=== PATIENT | female | born 1945 | race Caucasian/White ===

== ENCOUNTER 2017-08-20 09:00 | Outpatient (CLI) | payer MEDICARE, BC ==
--- NOTE | 2017-08-20 09:56 | MMO ---
BILATERAL DIGITAL SCREENING MAMMOGRAMS: History: 72-year-old female present for digital screening mammography. Comparison: 07-18-16, 07-13-15, 01-27-13, 01-21-12 This study is interpreted with the assistance of computer aided detection. FINDINGS: The breasts are heterogeneously dense which can obscure small masses. Stable typically benign calcifi cations. Stable bilateral parenchymal density asymmetries. Multiple skin molds. IMPRESSION: BIRADS category 2 - benign findings. Continued annual screening. POS: [facility]
== END 2017-08-20 09:01 | disposition home or self-care (01) ==
LOC: SCSMAMMO 09:00
PROVIDERS: ATTEND Nurse Practitioner
DX: Z12.31 Encounter for screening mammogram for malignant neoplasm of breast (principal)
CPT/HCPCS: 77067; G0202

== ENCOUNTER 2023-03-01 16:45 | Inpatient (IN) | payer MEDICARE, BC ==
[2023-03-01 20:52] VITALS: BMI 25.0
[2023-03-01] MEDS ORDERED: Piperacillin/Tazobactam 3.375 GM in Sodium Chloride 0.9% 100 ML IVPB SCH (21:00)
[2023-03-01] MEDS ORDERED: Morphine 4 MG/ML VIAL SLOW IVP SCH (21:15)
[2023-03-01] MEDS: Metoclopramide HCl 10 MG/2 ML VIAL IVP PRN (21:49)
[2023-03-01] MEDS: Morphine 4 MG/ML VIAL SLOW IVP PRN (22:32)
[2023-03-01] MEDS ORDERED: Piperacillin/Tazobactam 4.5 GM in Sodium Chloride 0.9% 100 ML IVPB SCH (23:59)
[2023-03-02] MEDS: Piperacillin/Tazobactam 3.375 GM in Sodium Chloride 0.9% 100 ML IVPB SCH ×3 (01:18→16:36)
[2023-03-02] MEDS: Morphine 4 MG/ML VIAL SLOW IVP PRN ×4 (02:30→17:10)
[2023-03-02] MEDS: Ondansetron PF 4 MG/2 ML Vial IVP PRN (02:33)
[2023-03-02 06:00] LABS: #Monocytes 0.3 thou/uL (0.11-0.59); #Neutrophils 6.9 thou/uL (1.40-6.50); %Basophils 0.4 % (0.0-1.0); %Lymphocytes 8.7 % (21.0-51.0); %Monocytes 3.8 % (0.0-10.0); %Neutrophils 86.8 % (42.0-75.0); Hemoglobin 13.7 g/dL (12.0-16.0); Mean Corpuscular HGB CONC 33.2 g/dL (32.0-36.0); Mean Corpuscular Hemoglobin 29.4 pg (27.0-31.0); Mean Corpuscular Volume 88.6 fl (78.0-98.0); Platelet Count 231 10x3/uL (130-400); Red Blood Cell (RBC) Count 4.66 mill/uL (4.20-5.40); White Blood Cell (WBC) Count 7.9 10x3/uL (4.8-10.8)
[2023-03-02 06:04] LABS: Manual Diff?? YES
[2023-03-02] MEDS: Metoclopramide HCl 10 MG/2 ML VIAL IVP PRN ×2 (06:17→16:35)
[2023-03-02 06:26] LABS: ALT (SGPT) 8 U/L (8-55); AST (SGOT) 11 U/L (5-34); Albumin 3.1 g/dL (3.4-4.8); Alkaline Phosphatase 42 U/L (40-110); Anion Gap 12 mmol/L (10-20); BUN (Urea Nitrogen) 17 mg/dL (9.8-20.1); Bilirubin, Total 1.3 mg/dL (0.2-1.2); Calc. Creatinine Clearance 57 mL/min (70-130); Calcium 8.6 mg/dL (7.8-10.44); Carbon Dioxide 23 mmol/L (23-31); Chloride 107 mmol/L (98-107); Estimated GFR 65; Globulin 2.4 g/dL (2.4-3.5); Glucose 149 mg/dL (83-110); Potassium 4.6 mmol/L (3.5-5.1); Protein, Total 5.5 g/dL (5.8-8.1); Sodium 137 mmol/L (136-145)
[2023-03-02 06:47] LABS: Band 38 % (5-11); Large Platelets 0.9 % (0-5); Lymphocytes 12 % (21-51); Metamyelocyte 1 % (0-0); Monocytes 4 % (0-10); Neutrophil 45 % (42-75); Platelet Adequacy Comment Platelets Normal; Total Cell Count 108
[2023-03-02] MEDS ORDERED: Ketorolac Tromethamine 30 MG/ML VIAL ONE (08:14)
[2023-03-02] MEDS ORDERED: Ketorolac Tromethamine 30 MG/ML VIAL IVP SCH (08:15)
[2023-03-02] MEDS: Lactated Ringer's 1,000 ML IV SCH ×2 (08:21→22:42)
[2023-03-02] MEDS: Dicyclomine 10 MG CAP PO SCH ×3 (13:21→20:52)
[2023-03-02] MEDS: Ketorolac Tromethamine 30 MG/ML VIAL IVP PRN ×2 (14:15→20:51)
[2023-03-02] MEDS ORDERED: QUEtiapine 100 MG TAB PO SCH (21:00)
[2023-03-02 22:25] LABS: #Monocytes 0.2 thou/uL (0.11-0.59); #Neutrophils 3.7 thou/uL (1.40-6.50); %Basophils 0.2 % (0.0-1.0); %Lymphocytes 7.7 % (21.0-51.0); %Monocytes 3.9 % (0.0-10.0); Hemoglobin 12.6 g/dL (12.0-16.0); Mean Corpuscular HGB CONC 33.2 g/dL (32.0-36.0); Mean Corpuscular Hemoglobin 30.5 pg (27.0-31.0); Mean Platelet Volume 10.1 fL (7.4-10.4); Platelet Count 188 10x3/uL (130-400); RBC Distribution Width 13.2 % (11.5-14.5); Red Blood Cell (RBC) Count 4.13 mill/uL (4.20-5.40); White Blood Cell (WBC) Count 4.2 10x3/uL (4.8-10.8)
[2023-03-02 22:30] LABS: Delete Auto Diff?? NO; Mean Corpuscular Volume 91.8 fl (78.0-98.0)
[2023-03-02 22:46] LABS: Anion Gap 12 mmol/L (10-20); BUN (Urea Nitrogen) 26 mg/dL (9.8-20.1); Calc. Creatinine Clearance 49 mL/min (70-130); Calcium 8.8 mg/dL (7.8-10.44); Carbon Dioxide 23 mmol/L (23-31); Chloride 108 mmol/L (98-107); Estimated GFR 54; Glucose 128 mg/dL (83-110); Potassium 4.2 mmol/L (3.5-5.1); Sodium 139 mmol/L (136-145)
[2023-03-02 22:51] LABS: Troponin I Less than 0.010 ng/mL (< 0.028)
[2023-03-03] MEDS: Piperacillin/Tazobactam 3.375 GM in Sodium Chloride 0.9% 100 ML IVPB SCH ×4 (01:58→23:03)
[2023-03-03] MEDS: Ketorolac Tromethamine 30 MG/ML VIAL IVP PRN (02:28)
[2023-03-03] MEDS ORDERED: Furosemide 40 MG/4 ML VIAL SLOW IVP SCH (03:00)
[2023-03-03] MEDS ORDERED: Ipratropium/Albuterol 3 ML NEB NEB SCH (03:00)
[2023-03-03] MEDS ORDERED: Morphine 2 MG/ML VIAL SLOW IVP PRN ×2 (03:23→12:09)
[2023-03-03] MEDS: Lactated Ringer's 1,000 ML IV SCH (06:21)
[2023-03-03] MEDS ORDERED: Lactated Ringer's 1,000 ML IV SCH (06:31)
[2023-03-03 07:53] LABS: Hemoglobin 12.3 g/dL (12.0-16.0); Mean Corpuscular HGB CONC 32.7 g/dL (32.0-36.0); Mean Corpuscular Hemoglobin 30.1 pg (27.0-31.0); Mean Corpuscular Volume 92.2 fl (78.0-98.0); Mean Platelet Volume 10.2 fL (7.4-10.4); Platelet Count 175 10x3/uL (130-400); RBC Distribution Width 13.2 % (11.5-14.5); Red Blood Cell (RBC) Count 4.08 mill/uL (4.20-5.40); White Blood Cell (WBC) Count 6.2 10x3/uL (4.8-10.8)
[2023-03-03] MEDS ORDERED: Ketorolac Tromethamine 30 MG/ML VIAL IVP PRN (07:59)
[2023-03-03] MEDS: Dicyclomine 10 MG CAP PO SCH ×3 (08:12→16:15)
[2023-03-03 08:14] LABS: Anion Gap 15 mmol/L (10-20); BUN (Urea Nitrogen) 29 mg/dL (9.8-20.1); Calc. Creatinine Clearance 40 mL/min (70-130); Calcium 8.9 mg/dL (7.8-10.44); Carbon Dioxide 23 mmol/L (23-31); Chloride 105 mmol/L (98-107); Estimated GFR 43; Glucose 121 mg/dL (83-110); Magnesium 2.5 mg/dL (1.6-2.6); Potassium 4.8 mmol/L (3.5-5.1); Sodium 138 mmol/L (136-145)
[2023-03-03 08:15] LABS: Delete Auto Diff?? YES; Manual Diff?? YES
[2023-03-03] MEDS ORDERED: Polyethylene Glycol 3350 17 GM Packet PO SCH (09:00)
[2023-03-03] MEDS ORDERED: Piperacillin/Tazobactam 3.375 GM in Sodium Chloride 0.9% 100 ML IVPB SCH (09:15)
[2023-03-03] MEDS ORDERED: Sodium Chloride 0.9% 1,000 ML IV SCH (09:15)
[2023-03-03 12:19] LABS: Band 44 % (5-11); Burr Cells SLIGHT = 2-5 cells HPF (0-1); CellaVision Operator ID LAB.NR; Large Platelets 1.9 % (0-5); Lymphocytes 10 % (21-51); Macrocytosis SLIGHT = 6-15 cells HPF (0-5); Monocytes 5 % (0-10); Neutrophil 41 % (42-75); Platelet Adequacy Comment Platelets Normal; Polychromasia SLIGHT = 2-3 cells HPF (0-2); Smudge Cells 5.8 %; Total Cell Count 104
[2023-03-03] MEDS: Ondansetron PF 4 MG/2 ML Vial IVP PRN (13:47)
[2023-03-03] MEDS ORDERED: Promethazine HCl 25 MG in Sodium Chloride 0.9% 50 ML IVPB PRN (14:03)
[2023-03-03 17:39] LABS: #Monocytes 0.1 thou/uL (0.11-0.59); #Neutrophils 4.7 thou/uL (1.40-6.50); %Basophils 0.4 % (0.0-1.0); %Lymphocytes 5.1 % (21.0-51.0); %Monocytes 2.2 % (0.0-10.0); %Neutrophils 92.1 % (42.0-75.0); Hemoglobin 13.6 g/dL (12.0-16.0); Mean Corpuscular HGB CONC 32.6 g/dL (32.0-36.0); Mean Corpuscular Hemoglobin 30.3 pg (27.0-31.0); Mean Corpuscular Volume 92.9 fl (78.0-98.0); Mean Platelet Volume 10.2 fL (7.4-10.4); Platelet Count 236 10x3/uL (130-400); RBC Distribution Width 13.2 % (11.5-14.5); Red Blood Cell (RBC) Count 4.49 mill/uL (4.20-5.40); White Blood Cell (WBC) Count 5.1 10x3/uL (4.8-10.8)
[2023-03-03 17:56] LABS: INR-International Normal Ratio 1.3; Prothrombin Time 16.8 sec (12.0-14.7)
[2023-03-03 18:00] LABS: ALT (SGPT) 18 U/L (8-55); AST (SGOT) 24 U/L (5-34); Albumin 3.2 g/dL (3.4-4.8); Alkaline Phosphatase 61 U/L (40-110); Anion Gap 16 mmol/L (10-20); BUN (Urea Nitrogen) 31 mg/dL (9.8-20.1); Bilirubin, Total 0.5 mg/dL (0.2-1.2); Calc. Creatinine Clearance 47 mL/min (70-130); Calcium 9.4 mg/dL (7.8-10.44); Carbon Dioxide 20 mmol/L (23-31); Chloride 104 mmol/L (98-107); Estimated GFR 52; Glucose 99 mg/dL (83-110); Potassium 4.2 mmol/L (3.5-5.1); Protein, Total 6.2 g/dL (5.8-8.1); Sodium 136 mmol/L (136-145)
[2023-03-03] MEDS ORDERED: Phenylephrine 10 MG/ML VIAL ONE (18:35)
[2023-03-03] MEDS ORDERED: fentaNYL 50 mcg/mL 1 mL Vial ONE ×2 (18:35→20:15)
[2023-03-03] MEDS ORDERED: Albumin 5% 500 ML ONE (18:44)
[2023-03-03] MEDS ORDERED: Calcium Chloride 1 GM/10 ML Abboject SYRINGE ONE (18:44)
[2023-03-03] MEDS ORDERED: Rocuronium Bromide 10 MG/ML (10ML VIAL) ONE (19:14)
[2023-03-03] MEDS ORDERED: Lidocaine 1% PF 5 ML VIAL ONE (19:14)
[2023-03-03] MEDS ORDERED: PROPOFOL 200 MG/20 ML VIAL ONE (19:14)
[2023-03-03] MEDS ORDERED: Fentanyl 250 MCG/5 ML VIAL ONE (20:17)
[2023-03-03] MEDS ORDERED: Sodium Chloride 0.9% 100 ML ONE (21:13)
[2023-03-03] MEDS ORDERED: Piperacillin/Tazobactam 3.375 GM VIAL ONE (21:13)
[2023-03-03 23:01] LABS: Calcium, Ionized (arterial) 1.04 mmol/L (1.12-1.30); Carboxyhemoglobin (COHb) 0.4 gm% (0.0-3.0); Hematocrit-ABG 36 % (36.0-47.0); Hemoglobin (Hb) 12.2 g/dL (12.0-16.0); O2 Tension (PaO2), arterial 241.6 mmHg (> 70.0); Potassium - ABG Lab 3.91 mmol/L (3.70-5.30); pH, Arterial 7.407 (7.35-7.45)
[2023-03-03 23:02] LABS: CO2 Tension 24.3 mmHg (35.0-45.0); Puncture Site LBA
[2023-03-03] MEDS: Sodium Chloride 0.9% 1,000 ML IV SCH (23:02)
[2023-03-03 23:03] LABS: ALV-art Gradient 441.025 mmHg (0-20)
[2023-03-03] MEDS ORDERED: Fentanyl CADD 100 ML IV PRN (23:03)
[2023-03-03] MEDS ORDERED: Calcium Chloride 1 GM/10 ML Abboject SYRINGE IVP SCH (23:15)
[2023-03-03 23:29] LABS: #Monocytes 0.3 thou/uL (0.11-0.59); #Neutrophils 5.1 thou/uL (1.40-6.50); %Basophils 0.5 % (0.0-1.0); %Lymphocytes 7.2 % (21.0-51.0); %Monocytes 4.3 % (0.0-10.0); %Neutrophils 87.5 % (42.0-75.0); Hemoglobin 12.8 g/dL (12.0-16.0); Mean Corpuscular HGB CONC 32.7 g/dL (32.0-36.0); Mean Corpuscular Hemoglobin 30.2 pg (27.0-31.0); Mean Corpuscular Volume 92.5 fl (78.0-98.0); Platelet Count 195 10x3/uL (130-400); RBC Distribution Width 13.2 % (11.5-14.5); Red Blood Cell (RBC) Count 4.24 mill/uL (4.20-5.40); White Blood Cell (WBC) Count 5.8 10x3/uL (4.8-10.8)
[2023-03-03 23:33] LABS: Manual Diff?? YES
[2023-03-03 23:40] LABS: INR-International Normal Ratio 1.3
[2023-03-03 23:41] LABS: PTT 31.6 sec (22.9-36.1)
[2023-03-03 23:52] LABS: Anion Gap 19 mmol/L (10-20); BUN (Urea Nitrogen) 32 mg/dL (9.8-20.1); Calc. Creatinine Clearance 51 mL/min (70-130); Calcium 8.5 mg/dL (7.8-10.44); Carbon Dioxide 15 mmol/L (23-31); Chloride 109 mmol/L (98-107); Estimated GFR 58; Glucose 103 mg/dL (83-110); Magnesium 2.5 mg/dL (1.6-2.6); Phosphorus 2.6 mg/dL (2.3-4.7); Potassium 4.4 mmol/L (3.5-5.1); Sodium 139 mmol/L (136-145)
[2023-03-04 00:12] LABS: Band 36 % (5-11); Burr Cells MODERATE= 6-15 cells HPF (0-1); Lymphocytes 7 % (21-51); Monocytes 2 % (0-10); Neutrophil 53 % (42-75); Platelet Adequacy Comment Platelets Normal; Poikilocytosis SLIGHT = 6-15 cells HPF (0-5); Polychromasia SLIGHT = 2-3 cells HPF (0-2); Reactive Lymphocytes 2 % (0-10); Total Cell Count 102
[2023-03-04] MEDS: Ipratropium/Albuterol 3 ML NEB NEB SCH ×5 (02:30→23:25)
[2023-03-04] MEDS ORDERED: Sodium Chloride 0.9% 1,000 ML IV SCH ×2 (07:30→07:45)
[2023-03-04 07:31] LABS: Actual Bicarbonate (HCO3a) 16.4 mEq/L (22-28); Base Excess (BEa) -6.6 mEq/L (-2.0 to +3.0); CO2 Tension 25.7 mmHg (35.0-45.0); Calcium, Ionized (arterial) 1.23 mmol/L (1.12-1.30); Carboxyhemoglobin (COHb) 0.3 gm% (0.0-3.0); Hematocrit-ABG 34 % (36.0-47.0); Hemoglobin (Hb) 11.7 g/dL (12.0-16.0); O2 Tension (PaO2), arterial 110.9 mmHg (> 70.0); Potassium - ABG Lab 3.99 mmol/L (3.70-5.30); pH, Arterial 7.422 (7.35-7.45)
[2023-03-04 07:40] LABS: Puncture Site RRA
[2023-03-04 07:41] LABS: ALV-art Gradient 142.175 mmHg (0-20)
[2023-03-04] MEDS ORDERED: Sodium Chloride 0.9% 500 ML IV SCH (07:45)
[2023-03-04] MEDS ORDERED: Lactated Ringer's 1,000 ML IV SCH ×2 (08:00→09:45)
[2023-03-04 08:24] LABS: Hemoglobin 10.7 g/dL (12.0-16.0); Mean Corpuscular HGB CONC 33.2 g/dL (32.0-36.0); Mean Corpuscular Hemoglobin 30.1 pg (27.0-31.0); Mean Corpuscular Volume 90.4 fl (78.0-98.0); Mean Platelet Volume 10.5 fL (7.4-10.4); Platelet Count 182 10x3/uL (130-400); RBC Distribution Width 13.4 % (11.5-14.5); Red Blood Cell (RBC) Count 3.56 mill/uL (4.20-5.40); White Blood Cell (WBC) Count 6.8 10x3/uL (4.8-10.8)
[2023-03-04 08:30] LABS: Delete Auto Diff?? YES; Manual Diff?? YES
[2023-03-04] MEDS ORDERED: Digoxin 0.5 MG/2 ML AMP SLOW IVP SCH (08:45)
[2023-03-04 09:00] LABS: Anion Gap 17 mmol/L (10-20); BUN (Urea Nitrogen) 32 mg/dL (9.8-20.1); Calc. Creatinine Clearance 51 mL/min (70-130); Calcium 9.3 mg/dL (7.8-10.44); Carbon Dioxide 15 mmol/L (23-31); Chloride 111 mmol/L (98-107); Estimated GFR 58; Glucose 118 mg/dL (83-110); Magnesium 2.2 mg/dL (1.6-2.6); Phosphorus 3.2 mg/dL (2.3-4.7); Potassium 3.9 mmol/L (3.5-5.1); Sodium 139 mmol/L (136-145)
[2023-03-04] MEDS ORDERED: Hydrocortisone Sod Succ/PF 100 mg/2 ml Vial IVP SCH ×2 (09:00→18:00)
[2023-03-04] MEDS: Sodium Chloride 0.9% 1,000 ML IV SCH (09:07)
[2023-03-04 09:45] LABS: Band 49 % (5-11); Burr Cells MODERATE= 6-15 cells HPF (0-1); CellaVision Operator ID LAB.GE; Lymphocytes 4 % (21-51); Metamyelocyte 2 % (0-0); Monocytes 4 % (0-10); Neutrophil 42 % (42-75); Platelet Adequacy Comment Platelets Normal; Polychromasia SLIGHT = 2-3 cells HPF (0-2); Total Cell Count 103; Vacuoles SLIGHT
[2023-03-04] MEDS: Pantoprazole 40 MG VIAL IVP SCH (09:47)
[2023-03-04] MEDS: Amiodarone 450 MG in Dextrose 5% in Water 250 ML IVPB SCH ×2 (09:50→17:22)
[2023-03-04] MEDS ORDERED: Potassium Bicarbonate/Cit Ac 20 MEQ TAB PO SCH (10:00)
[2023-03-04] MEDS: Sodium Bicarbonate 150 MEQ in Dextrose 5% in Water 1,000 ML IV SCH ×3 (10:24→23:40)
[2023-03-04] MEDS ORDERED: diphenhydrAMINE 50 MG/ML VIAL IM PRN (10:37)
[2023-03-04] MEDS ORDERED: HYDROmorphone 10 mg/100 ml CADD IVPB PRN (10:37)
[2023-03-04] MEDS ORDERED: Zolpidem Tartrate 5 MG TAB PO PRN (10:37)
[2023-03-04] MEDS ORDERED: Naloxone HCl 0.4 mg/ml Vial IV PRN (10:37)
[2023-03-04] MEDS ORDERED: diphenhydrAMINE 25 MG CAP PO PRN (10:37)
[2023-03-04] MEDS: Potassium Chloride 10 MEQ in Premix Bag 1 BAG IVPB SCH ×2 (10:41→11:48)
[2023-03-04] MEDS ORDERED: Meropenem 1 GM in Sodium Chloride 0.9% 100 ML IVPB SCH ×2 (10:45→14:00)
[2023-03-04] MEDS ORDERED: Communication Order-Pharmacy FS SCH (10:45)
[2023-03-04 15:18] LABS: Hemoglobin 9.8 g/dL (12.0-16.0); Mean Corpuscular HGB CONC 33.3 g/dL (32.0-36.0); Mean Corpuscular Hemoglobin 30.2 pg (27.0-31.0); Mean Corpuscular Volume 90.5 fl (78.0-98.0); Mean Platelet Volume 10.4 fL (7.4-10.4); Platelet Count 211 10x3/uL (130-400); RBC Distribution Width 13.6 % (11.5-14.5); Red Blood Cell (RBC) Count 3.25 mill/uL (4.20-5.40); White Blood Cell (WBC) Count 7.8 10x3/uL (4.8-10.8)
[2023-03-04 15:25] LABS: Delete Auto Diff?? YES; Manual Diff?? YES
[2023-03-04 15:45] LABS: Anion Gap 11 mmol/L (10-20); BUN (Urea Nitrogen) 28 mg/dL (9.8-20.1); Calc. Creatinine Clearance 57 mL/min (70-130); Calcium 8.3 mg/dL (7.8-10.44); Carbon Dioxide 24 mmol/L (23-31); Chloride 107 mmol/L (98-107); Estimated GFR 65; Glucose 264 mg/dL (83-110); Potassium 3.8 mmol/L (3.5-5.1); Sodium 138 mmol/L (136-145)
[2023-03-04 15:49] LABS: Band 50 % (5-11); Burr Cells MODERATE= 6-15 cells HPF (0-1); CellaVision Operator ID LAB.MJL; Lymphocytes 5 % (21-51); Monocytes 4 % (0-10); Neutrophil 42 % (42-75); Ovalocytes SLIGHT = 2-5 cells HPF (0-1); Platelet Adequacy Comment Platelets Normal; Poikilocytosis SLIGHT = 6-15 cells HPF (0-5); Polychromasia SLIGHT = 2-3 cells HPF (0-2); Reflex for Review?? YES; Total Cell Count 101; Vacuoles SLIGHT
[2023-03-04] MEDS ORDERED: hydrALAZINE 20 MG/ML VIAL SLOW IVP PRN (17:43)
[2023-03-04] MEDS ORDERED: Labetalol HCl 100 MG/20 ML VIAL SLOW IVP PRN (17:44)
[2023-03-04] MEDS ORDERED: methylPREDNISolone Sod Succ 40 MG VIAL IVP SCH (18:00)
[2023-03-04] MEDS: Meropenem 1 GM in Sodium Chloride 0.9% 100 ML IVPB SCH (20:48)
[2023-03-05] MEDS: Amiodarone 450 MG in Dextrose 5% in Water 250 ML IVPB SCH (07:54)
[2023-03-05] MEDS: Ipratropium/Albuterol 3 ML NEB NEB SCH ×3 (08:05→18:28)
[2023-03-05] MEDS: Pantoprazole 40 MG VIAL IVP SCH (08:11)
[2023-03-05] MEDS: hydrALAZINE 20 MG/ML VIAL SLOW IVP PRN ×2 (08:11→21:25)
[2023-03-05] MEDS: Sodium Bicarbonate 150 MEQ in Dextrose 5% in Water 1,000 ML IV SCH (08:13)
[2023-03-05] MEDS ORDERED: Dextrose 50% Abboject 50 ML SYRINGE SLOW IVP PRN (08:14)
[2023-03-05] MEDS ORDERED: HumaLOG 300 UNITS/3 ML VIAL SC PRN (08:14)
[2023-03-05] MEDS ORDERED: Glucagon 1 MG/ML KIT IM PRN (08:14)
[2023-03-05] MEDS ORDERED: Dextrose 5% in Water 1,000 ML IV PRN (08:14)
[2023-03-05 08:15] LABS: #Monocytes 0.6 thou/uL (0.11-0.59); #Neutrophils 8.5 thou/uL (1.40-6.50); %Basophils 0.3 % (0.0-1.0); %Lymphocytes 3.6 % (21.0-51.0); %Monocytes 6.3 % (0.0-10.0); %Neutrophils 88.9 % (42.0-75.0); Hemoglobin 10.5 g/dL (12.0-16.0); Mean Corpuscular HGB CONC 33.4 g/dL (32.0-36.0); Mean Corpuscular Hemoglobin 29.7 pg (27.0-31.0); Mean Platelet Volume 10.3 fL (7.4-10.4); Platelet Count 218 10x3/uL (130-400); RBC Distribution Width 13.6 % (11.5-14.5); Red Blood Cell (RBC) Count 3.53 mill/uL (4.20-5.40); White Blood Cell (WBC) Count 9.5 10x3/uL (4.8-10.8)
[2023-03-05 08:39] LABS: ALT (SGPT) 17 U/L (8-55); AST (SGOT) 21 U/L (5-34); Albumin 2.4 g/dL (3.4-4.8); Alkaline Phosphatase 44 U/L (40-110); Anion Gap 11 mmol/L (10-20); BUN (Urea Nitrogen) 20 mg/dL (9.8-20.1); Bilirubin, Total 0.6 mg/dL (0.2-1.2); Calc. Creatinine Clearance 70 mL/min (70-130); Calcium 8.5 mg/dL (7.8-10.44); Carbon Dioxide 31 mmol/L (23-31); Chloride 101 mmol/L (98-107); Estimated GFR 83; Globulin 2.6 g/dL (2.4-3.5); Glucose 206 mg/dL (83-110); Magnesium 2.1 mg/dL (1.6-2.6); Sodium 139 mmol/L (136-145)
[2023-03-05] MEDS: Meropenem 1 GM in Sodium Chloride 0.9% 100 ML IVPB SCH ×3 (09:15→23:29)
[2023-03-05] MEDS ORDERED: Metoprolol Tartrate 25 MG TAB PO SCH ×2 (09:45→21:00)
[2023-03-05 11:26] LABS: Phosphorus 1.8 mg/dL (2.3-4.7)
[2023-03-05] MEDS ORDERED: Amiodarone 450 MG, Admixture Fee 1 EACH in Dextrose 5% in Water 250 ML IVPB SCH (12:15)
[2023-03-05] MEDS: Lactated Ringer's 1,000 ML IV SCH (13:49)
[2023-03-05] MEDS: diphenhydrAMINE 50 MG/ML VIAL IVP PRN (21:25)
[2023-03-05] MEDS: Metoprolol Tartrate 25 MG TAB PO SCH (21:26)
[2023-03-06] MEDS: diphenhydrAMINE 50 MG/ML VIAL IVP PRN (02:45)
[2023-03-06] MEDS: Lactated Ringer's 1,000 ML IV SCH (03:09)
[2023-03-06 04:34] LABS: #Monocytes 1.2 thou/uL (0.11-0.59); %Basophils 0.2 % (0.0-1.0); %Eosinophils 0.1 % (0.0-10.0); %Lymphocytes 6.1 % (21.0-51.0); %Monocytes 9.2 % (0.0-10.0); Hemoglobin 10.5 g/dL (12.0-16.0); Mean Corpuscular HGB CONC 32.9 g/dL (32.0-36.0); Mean Corpuscular Hemoglobin 30.3 pg (27.0-31.0); Mean Platelet Volume 10.1 fL (7.4-10.4); Platelet Count 260 10x3/uL (130-400); RBC Distribution Width 13.8 % (11.5-14.5); Red Blood Cell (RBC) Count 3.47 mill/uL (4.20-5.40); White Blood Cell (WBC) Count 12.5 10x3/uL (4.8-10.8)
[2023-03-06 04:39] LABS: Mean Corpuscular Volume 91.9 fl (78.0-98.0)
[2023-03-06 04:53] LABS: Phosphorus 1.9 mg/dL (2.3-4.7)
[2023-03-06 04:57] LABS: ALT (SGPT) 15 U/L (8-55); AST (SGOT) 20 U/L (5-34); Albumin 2.5 g/dL (3.4-4.8); Alkaline Phosphatase 60 U/L (40-110); Anion Gap 12 mmol/L (10-20); BUN (Urea Nitrogen) 17 mg/dL (9.8-20.1); Bilirubin, Total 0.5 mg/dL (0.2-1.2); Calc. Creatinine Clearance 74 mL/min (70-130); Calcium 8.5 mg/dL (7.8-10.44); Carbon Dioxide 29 mmol/L (23-31); Chloride 100 mmol/L (98-107); Estimated GFR 88; Globulin 2.4 g/dL (2.4-3.5); Glucose 121 mg/dL (83-110); Potassium 3.7 mmol/L (3.5-5.1); Protein, Total 4.9 g/dL (5.8-8.1); Sodium 137 mmol/L (136-145)
[2023-03-06] MEDS: hydrALAZINE 20 MG/ML VIAL SLOW IVP PRN (06:12)
[2023-03-06] MEDS: Ipratropium/Albuterol 3 ML NEB NEB SCH ×5 (07:24→21:39)
[2023-03-06] MEDS: Pantoprazole 40 MG VIAL IVP SCH (08:01)
[2023-03-06] MEDS: Meropenem 1 GM in Sodium Chloride 0.9% 100 ML IVPB SCH ×2 (08:01→14:18)
[2023-03-06] MEDS: Metoprolol Tartrate 25 MG TAB PO SCH ×2 (08:01→21:12)
[2023-03-06] MEDS ORDERED: Potassium Phosphate 30 MMOL in Sodium Chloride 0.9% 250 ML 250 ML IVPB SCH (08:15)
[2023-03-06] MEDS ORDERED: traMADol HCl 50 MG TAB PO PRN (08:17)
[2023-03-06] MEDS: traMADol HCl 50 MG TAB PO SCH ×3 (08:36→21:12)
[2023-03-06] MEDS: Ondansetron PF 4 MG/2 ML Vial IVP PRN ×2 (08:38→21:22)
[2023-03-06] MEDS: Ibuprofen 200 MG TAB PO SCH ×2 (08:45→16:35)
[2023-03-06] MEDS ORDERED: ALPRAZolam 0.5 MG TAB PO PRN (09:32)
[2023-03-06] MEDS: Lisinopril 5 MG TAB PO SCH ×2 (09:43→21:12)
[2023-03-06] MEDS: Amiodarone 200 MG TAB PO SCH ×3 (09:44→21:12)
[2023-03-06] MEDS ORDERED: Furosemide 20 MG/2 ML VIAL SLOW IVP SCH (10:00)
[2023-03-06] MEDS: Acetaminophen 500 MG TAB PO SCH ×2 (14:17→21:11)
[2023-03-06] MEDS ORDERED: QUEtiapine 100 MG TAB PO SCH (21:00)
[2023-03-06] MEDS: QUEtiapine 100 MG TAB PO SCH (21:13)
[2023-03-06] MEDS ORDERED: ALPRAZolam 0.5 MG TAB PO SCH (22:00)
[2023-03-07] MEDS: Meropenem 1 GM in Sodium Chloride 0.9% 100 ML IVPB SCH ×3 (00:15→15:54)
[2023-03-07] MEDS: Acetaminophen 500 MG TAB PO SCH ×4 (00:20→18:41)
[2023-03-07] MEDS: Ibuprofen 200 MG TAB PO SCH ×3 (00:46→17:16)
[2023-03-07] MEDS: traMADol HCl 50 MG TAB PO SCH ×3 (03:19→17:08)
[2023-03-07 05:40] LABS: #Basophils 0.1 thou/uL (0.0-0.2); #Eosinphils 0.2 thou/uL (0.0-0.7); #Monocytes 0.9 thou/uL (0.11-0.59); #Neutrophils 8.6 thou/uL (1.40-6.50); %Basophils 0.6 % (0.0-1.0); %Eosinophils 1.5 % (0.0-10.0); %Lymphocytes 11.1 % (21.0-51.0); %Monocytes 7.7 % (0.0-10.0); %Neutrophils 74.4 % (42.0-75.0); Mean Corpuscular HGB CONC 32.7 g/dL (32.0-36.0); Mean Corpuscular Hemoglobin 29.5 pg (27.0-31.0); Mean Corpuscular Volume 90.1 fl (78.0-98.0); Mean Platelet Volume 9.7 fL (7.4-10.4); Platelet Count 267 10x3/uL (130-400); RBC Distribution Width 14.1 % (11.5-14.5); Red Blood Cell (RBC) Count 3.73 mill/uL (4.20-5.40); White Blood Cell (WBC) Count 11.6 10x3/uL (4.8-10.8)
[2023-03-07 06:12] LABS: ALT (SGPT) 12 U/L (8-55); AST (SGOT) 22 U/L (5-34); Albumin 2.2 g/dL (3.4-4.8); Alkaline Phosphatase 47 U/L (40-110); Anion Gap 11 mmol/L (10-20); BUN (Urea Nitrogen) 17 mg/dL (9.8-20.1); Bilirubin, Total 0.6 mg/dL (0.2-1.2); Calc. Creatinine Clearance 79 mL/min (70-130); Calcium 8.4 mg/dL (7.8-10.44); Carbon Dioxide 30 mmol/L (23-31); Chloride 100 mmol/L (98-107); Estimated GFR 90; Globulin 2.1 g/dL (2.4-3.5); Glucose 100 mg/dL (83-110); Potassium 3.9 mmol/L (3.5-5.1); Protein, Total 4.3 g/dL (5.8-8.1); Sodium 137 mmol/L (136-145)
[2023-03-07] MEDS: Ipratropium/Albuterol 3 ML NEB NEB SCH ×3 (08:06→18:52)
[2023-03-07] MEDS: Lisinopril 5 MG TAB PO SCH (09:54)
[2023-03-07] MEDS: Amiodarone 200 MG TAB PO SCH ×3 (09:55→21:00)
[2023-03-07] MEDS: Metoprolol Tartrate 25 MG TAB PO SCH (09:55)
[2023-03-07] MEDS: Pantoprazole 40 MG VIAL IVP SCH (09:56)
[2023-03-07] MEDS: Ondansetron PF 4 MG/2 ML Vial IVP PRN (10:20)
[2023-03-07] MEDS ORDERED: Furosemide 20 MG/2 ML VIAL SLOW IVP SCH (10:45)
[2023-03-07] MEDS ORDERED: Metoprolol Tartrate 25 MG TAB PO SCH (18:30)
[2023-03-07] MEDS ORDERED: Lisinopril 5 MG TAB PO SCH (18:30)
[2023-03-07] MEDS: ALPRAZolam 0.5 MG TAB PO SCH (20:27)
[2023-03-07] MEDS: QUEtiapine 100 MG TAB PO SCH (21:00)
[2023-03-08] MEDS: Acetaminophen 500 MG TAB PO SCH ×5 (00:35→18:31)
[2023-03-08] MEDS: Ibuprofen 200 MG TAB PO SCH ×2 (00:36→08:51)
[2023-03-08] MEDS: Meropenem 1 GM in Sodium Chloride 0.9% 100 ML IVPB SCH ×3 (00:37→15:12)
[2023-03-08] MEDS: ALPRAZolam 0.25 MG TAB PO PRN (03:28)
[2023-03-08 05:25] LABS: #Basophils 0.1 thou/uL (0.0-0.2); #Eosinphils 0.2 thou/uL (0.0-0.7); #Monocytes 1.1 thou/uL (0.11-0.59); #Neutrophils 12.2 thou/uL (1.40-6.50); %Basophils 0.7 % (0.0-1.0); %Eosinophils 1.4 % (0.0-10.0); %Neutrophils 75.6 % (42.0-75.0); Hemoglobin 11.6 g/dL (12.0-16.0); Mean Corpuscular HGB CONC 32.6 g/dL (32.0-36.0); Mean Corpuscular Hemoglobin 29.7 pg (27.0-31.0); Mean Platelet Volume 10.2 fL (7.4-10.4); Platelet Count 302 10x3/uL (130-400); RBC Distribution Width 14.3 % (11.5-14.5); Red Blood Cell (RBC) Count 3.91 mill/uL (4.20-5.40); White Blood Cell (WBC) Count 16.1 10x3/uL (4.8-10.8)
[2023-03-08] MEDS: Ipratropium/Albuterol 3 ML NEB NEB SCH ×3 (05:39→19:24)
[2023-03-08 05:47] LABS: Phosphorus 3.3 mg/dL (2.3-4.7)
[2023-03-08 05:51] LABS: ALT (SGPT) 11 U/L (8-55); AST (SGOT) 14 U/L (5-34); Albumin 2.2 g/dL (3.4-4.8); Alkaline Phosphatase 50 U/L (40-110); Anion Gap 12 mmol/L (10-20); BUN (Urea Nitrogen) 14 mg/dL (9.8-20.1); Bilirubin, Total 0.5 mg/dL (0.2-1.2); Calc. Creatinine Clearance 74 mL/min (70-130); Calcium 8.6 mg/dL (7.8-10.44); Carbon Dioxide 30 mmol/L (23-31); Chloride 100 mmol/L (98-107); Estimated GFR 88; Globulin 2.4 g/dL (2.4-3.5); Glucose 103 mg/dL (83-110); Magnesium 1.9 mg/dL (1.6-2.6); Potassium 3.7 mmol/L (3.5-5.1); Protein, Total 4.6 g/dL (5.8-8.1); Sodium 138 mmol/L (136-145)
[2023-03-08 08:37] LABS: Manual Diff?? YES
[2023-03-08] MEDS: Lisinopril 5 MG TAB PO SCH ×2 (08:53→18:31)
[2023-03-08] MEDS: Metoprolol Tartrate 25 MG TAB PO SCH ×2 (08:54→18:31)
[2023-03-08] MEDS: Amiodarone 200 MG TAB PO SCH ×2 (08:54→20:31)
[2023-03-08 08:59] LABS: Band 8 % (5-11); Burr Cells SLIGHT = 2-5 cells HPF (0-1); CellaVision Operator ID LAB.GE; Eosinophils 1 % (0-10); Lymphocytes 5 % (21-51); Monocytes 7 % (0-10); Neutrophil 76 % (42-75); Platelet Adequacy Comment Platelets Normal; Poikilocytosis SLIGHT = 6-15 cells HPF (0-5); Polychromasia SLIGHT = 2-3 cells HPF (0-2); Reactive Lymphocytes 3 % (0-10); Total Cell Count 99
[2023-03-08] MEDS ORDERED: Furosemide 20 MG/2 ML VIAL SLOW IVP SCH (10:15)
[2023-03-08] MEDS ORDERED: Lactated Ringer's 1,000 ML IV SCH (14:30)
[2023-03-08] MEDS: ALPRAZolam 0.5 MG TAB PO SCH (20:31)
[2023-03-08] MEDS: Ondansetron PF 4 MG/2 ML Vial IVP PRN (21:27)
[2023-03-08] MEDS: Promethazine HCl 25 MG/ML VIAL IM PRN (22:54)
[2023-03-09] MEDS: Acetaminophen 500 MG TAB PO SCH ×3 (00:01→12:18)
[2023-03-09] MEDS: Promethazine HCl 25 MG/ML VIAL IM PRN (02:51)
[2023-03-09 04:22] LABS: #Basophils 0.1 thou/uL (0.0-0.2); #Eosinphils 0.2 thou/uL (0.0-0.7); #Neutrophils 13.6 thou/uL (1.40-6.50); %Basophils 0.4 % (0.0-1.0); %Monocytes 5.8 % (0.0-10.0); %Neutrophils 81.4 % (42.0-75.0); Hemoglobin 11.3 g/dL (12.0-16.0); Mean Corpuscular HGB CONC 32.3 g/dL (32.0-36.0); Mean Corpuscular Volume 92.8 fl (78.0-98.0); Mean Platelet Volume 9.7 fL (7.4-10.4); RBC Distribution Width 14.5 % (11.5-14.5); Red Blood Cell (RBC) Count 3.77 mill/uL (4.20-5.40); White Blood Cell (WBC) Count 16.6 10x3/uL (4.8-10.8)
[2023-03-09 04:27] LABS: Platelet Count 409 10x3/uL (130-400)
[2023-03-09 04:41] LABS: Anion Gap 14 mmol/L (10-20); BUN (Urea Nitrogen) 15 mg/dL (9.8-20.1); Calc. Creatinine Clearance 74 mL/min (70-130); Calcium 8.7 mg/dL (7.8-10.44); Carbon Dioxide 29 mmol/L (23-31); Chloride 100 mmol/L (98-107); Estimated GFR 88; Glucose 118 mg/dL (83-110); Magnesium 1.8 mg/dL (1.6-2.6); Phosphorus 3.7 mg/dL (2.3-4.7); Potassium 4.1 mmol/L (3.5-5.1); Sodium 139 mmol/L (136-145)
[2023-03-09] MEDS: Ipratropium/Albuterol 3 ML NEB NEB SCH ×3 (06:27→22:07)
[2023-03-09] MEDS ORDERED: Magnesium 2 GM/50 ML(in water) 2 GM in Premix Bag 1 BAG IVPB SCH (08:00)
[2023-03-09] MEDS: Meropenem 1 GM in Sodium Chloride 0.9% 100 ML IVPB SCH ×3 (10:17→15:57)
[2023-03-09] MEDS ORDERED: Iopamidol 370 76% 100 ML VIAL ONE (11:46)
[2023-03-09] MEDS: Ondansetron PF 4 MG/2 ML Vial IVP PRN (12:16)
[2023-03-09] MEDS: Amiodarone 200 MG TAB PO SCH ×2 (12:17→20:37)
[2023-03-09] MEDS: Lisinopril 5 MG TAB PO SCH ×2 (12:17→19:05)
[2023-03-09] MEDS: Metoprolol Tartrate 25 MG TAB PO SCH ×2 (12:17→19:05)
[2023-03-09] MEDS: Lactated Ringer's 1,000 ML IV SCH ×2 (12:25→20:36)
[2023-03-09] MEDS ORDERED: Lidocaine 4% Patch TD SCH (13:15)
[2023-03-09] MEDS ORDERED: Promethazine HCl 25 MG/ML VIAL IM PRN (13:35)
[2023-03-09] MEDS ORDERED: Morphine 4 MG/ML VIAL SLOW IVP PRN (13:35)
[2023-03-09] MEDS: Polyethylene Glycol 3350 17 GM Packet PO SCH (20:31)
[2023-03-09] MEDS: ALPRAZolam 0.25 MG TAB PO PRN (20:37)
[2023-03-09] MEDS: Transdermal Patch Removal TOP SCH (20:38)
[2023-03-09] MEDS ORDERED: QUEtiapine 25 MG TAB PO SCH (21:30)
[2023-03-10] MEDS: Meropenem 1 GM in Sodium Chloride 0.9% 100 ML IVPB SCH ×4 (00:05→23:23)
[2023-03-10] MEDS: Ketorolac Tromethamine 30 MG/ML VIAL IVP PRN ×2 (06:05→23:23)
[2023-03-10] MEDS: Ipratropium/Albuterol 3 ML NEB NEB SCH ×2 (07:14→12:38)
[2023-03-10] MEDS ORDERED: Furosemide 20 MG/2 ML VIAL SLOW IVP SCH (09:00)
[2023-03-10] MEDS: Lisinopril 5 MG TAB PO SCH ×2 (09:26→18:58)
[2023-03-10] MEDS: Amiodarone 200 MG TAB PO SCH ×2 (09:27→21:32)
[2023-03-10] MEDS: Polyethylene Glycol 3350 17 GM Packet PO SCH ×2 (09:27→21:38)
[2023-03-10] MEDS: Lidocaine 4% Patch TD SCH (09:27)
[2023-03-10] MEDS: Metoprolol Tartrate 25 MG TAB PO SCH ×2 (09:27→18:58)
[2023-03-10] MEDS: Pantoprazole 40 MG VIAL IVP SCH (09:28)
[2023-03-10] MEDS ORDERED: Ipratropium/Albuterol 3 ML NEB NEB PRN (13:15)
[2023-03-10] MEDS: Ondansetron PF 4 MG/2 ML Vial IVP PRN (19:58)
[2023-03-10] MEDS ORDERED: QUEtiapine 100 MG TAB PO SCH (21:00)
[2023-03-10] MEDS: hydrALAZINE 20 MG/ML VIAL SLOW IVP PRN (21:30)
[2023-03-10] MEDS: ALPRAZolam 0.25 MG TAB PO PRN (21:32)
[2023-03-10] MEDS: QUEtiapine 25 MG TAB PO SCH (21:32)
[2023-03-10] MEDS: Transdermal Patch Removal TOP SCH (21:37)
[2023-03-11] MEDS: ALPRAZolam 0.25 MG TAB PO PRN ×2 (05:16→21:22)
[2023-03-11 06:39] LABS: Hemoglobin 9.5 g/dL (12.0-16.0); Mean Corpuscular HGB CONC 32.8 g/dL (32.0-36.0); Mean Corpuscular Hemoglobin 30.3 pg (27.0-31.0); Mean Corpuscular Volume 92.4 fl (78.0-98.0); Mean Platelet Volume 9.4 fL (7.4-10.4); Platelet Count 496 10x3/uL (130-400); RBC Distribution Width 14.4 % (11.5-14.5); Red Blood Cell (RBC) Count 3.14 mill/uL (4.20-5.40)
[2023-03-11 06:59] LABS: Phosphorus 2.5 mg/dL (2.3-4.7)
[2023-03-11 07:00] LABS: Anion Gap 9 mmol/L (10-20); BUN (Urea Nitrogen) 11 mg/dL (9.8-20.1); Calc. Creatinine Clearance 70 mL/min (70-130); Carbon Dioxide 30 mmol/L (23-31); Chloride 106 mmol/L (98-107); Estimated GFR 84; Glucose 108 mg/dL (83-110); Potassium 4.1 mmol/L (3.5-5.1); Sodium 141 mmol/L (136-145)
[2023-03-11] MEDS: Pantoprazole 40 MG VIAL IVP SCH (10:24)
[2023-03-11] MEDS: Metoprolol Tartrate 25 MG TAB PO SCH ×2 (10:24→18:10)
[2023-03-11] MEDS: Polyethylene Glycol 3350 17 GM Packet PO SCH ×2 (10:25→21:22)
[2023-03-11] MEDS: Lisinopril 5 MG TAB PO SCH ×2 (10:25→18:10)
[2023-03-11] MEDS: Amiodarone 200 MG TAB PO SCH ×2 (10:25→21:22)
[2023-03-11] MEDS: Lidocaine 4% Patch TD SCH (10:25)
[2023-03-11] MEDS: Meropenem 1 GM in Sodium Chloride 0.9% 100 ML IVPB SCH ×3 (10:42→23:44)
[2023-03-11] MEDS: QUEtiapine 25 MG TAB PO SCH (21:22)
[2023-03-11] MEDS: Transdermal Patch Removal TOP SCH (21:23)
[2023-03-11] MEDS: hydrALAZINE 20 MG/ML VIAL SLOW IVP PRN (21:23)
[2023-03-12] MEDS: ALPRAZolam 0.25 MG TAB PO PRN ×2 (04:23→20:37)
[2023-03-12 05:45] LABS: #Eosinphils 0.1 thou/uL (0.0-0.7); #Monocytes 0.8 thou/uL (0.11-0.59); #Neutrophils 11.7 thou/uL (1.40-6.50); %Basophils 0.2 % (0.0-1.0); %Eosinophils 0.6 % (0.0-10.0); %Lymphocytes 8.6 % (21.0-51.0); %Monocytes 5.6 % (0.0-10.0); %Neutrophils 83.1 % (42.0-75.0); Mean Corpuscular HGB CONC 32.1 g/dL (32.0-36.0); Mean Corpuscular Hemoglobin 29.1 pg (27.0-31.0); Mean Corpuscular Volume 90.7 fl (78.0-98.0); Mean Platelet Volume 9.4 fL (7.4-10.4); Platelet Count 575 10x3/uL (130-400); RBC Distribution Width 14.2 % (11.5-14.5); Red Blood Cell (RBC) Count 3.44 mill/uL (4.20-5.40)
[2023-03-12 06:09] LABS: Anion Gap 13 mmol/L (10-20); BUN (Urea Nitrogen) 10 mg/dL (9.8-20.1); Calc. Creatinine Clearance 74 mL/min (70-130); Calcium 8.1 mg/dL (7.8-10.44); Carbon Dioxide 24 mmol/L (23-31); Chloride 105 mmol/L (98-107); Estimated GFR 88; Glucose 105 mg/dL (83-110); Magnesium 1.9 mg/dL (1.6-2.6); Sodium 138 mmol/L (136-145)
[2023-03-12] MEDS: Lisinopril 5 MG TAB PO SCH ×2 (09:13→17:03)
[2023-03-12] MEDS: Metoprolol Tartrate 25 MG TAB PO SCH ×2 (09:14→17:03)
[2023-03-12] MEDS: Amiodarone 200 MG TAB PO SCH ×2 (09:14→20:37)
[2023-03-12] MEDS: Lidocaine 4% Patch TD SCH (09:14)
[2023-03-12] MEDS: Meropenem 1 GM in Sodium Chloride 0.9% 100 ML IVPB SCH ×3 (09:14→23:57)
[2023-03-12] MEDS: Polyethylene Glycol 3350 17 GM Packet PO SCH ×2 (09:15→20:37)
[2023-03-12] MEDS: Pantoprazole 40 MG VIAL IVP SCH (09:15)
[2023-03-12] MEDS ORDERED: Magnesium 2 GM/50 ML(in water) 2 GM in Premix Bag 1 BAG IVPB SCH (09:45)
[2023-03-12] MEDS: Transdermal Patch Removal TOP SCH (20:37)
[2023-03-12] MEDS: QUEtiapine 25 MG TAB PO SCH (20:37)
[2023-03-13] MEDS: Ketorolac Tromethamine 30 MG/ML VIAL IVP PRN (04:24)
[2023-03-13 06:09] LABS: #Eosinphils 0.1 thou/uL (0.0-0.7); #Monocytes 0.9 thou/uL (0.11-0.59); #Neutrophils 10.1 thou/uL (1.40-6.50); %Basophils 0.3 % (0.0-1.0); %Lymphocytes 9.8 % (21.0-51.0); %Monocytes 7.2 % (0.0-10.0); %Neutrophils 79.7 % (42.0-75.0); Hemoglobin 9.6 g/dL (12.0-16.0); Mean Corpuscular HGB CONC 32.5 g/dL (32.0-36.0); Mean Corpuscular Hemoglobin 29.5 pg (27.0-31.0); Mean Corpuscular Volume 90.8 fl (78.0-98.0); Mean Platelet Volume 9.4 fL (7.4-10.4); Platelet Count 578 10x3/uL (130-400); Red Blood Cell (RBC) Count 3.25 mill/uL (4.20-5.40); White Blood Cell (WBC) Count 12.7 10x3/uL (4.8-10.8)
[2023-03-13 06:34] LABS: Anion Gap 11 mmol/L (10-20); BUN (Urea Nitrogen) 9 mg/dL (9.8-20.1); Calc. Creatinine Clearance 74 mL/min (70-130); Carbon Dioxide 24 mmol/L (23-31); Chloride 108 mmol/L (98-107); Estimated GFR 88; Glucose 102 mg/dL (83-110); Magnesium 2.3 mg/dL (1.6-2.6); Sodium 139 mmol/L (136-145)
[2023-03-13] MEDS: Lidocaine 4% Patch TD SCH (08:16)
[2023-03-13] MEDS: Metoprolol Tartrate 25 MG TAB PO SCH ×2 (08:17→16:39)
[2023-03-13] MEDS: Meropenem 1 GM in Sodium Chloride 0.9% 100 ML IVPB SCH ×2 (08:17→15:54)
[2023-03-13] MEDS: Polyethylene Glycol 3350 17 GM Packet PO SCH (08:17)
[2023-03-13] MEDS: Pantoprazole 40 MG VIAL IVP SCH (08:17)
[2023-03-13] MEDS: Amiodarone 200 MG TAB PO SCH (08:17)
[2023-03-13] MEDS: Lisinopril 5 MG TAB PO SCH ×2 (08:17→16:36)
[2023-03-13 14:31] VITALS: BP 125/69; TEMP 97.3
== END 2023-03-13 16:45 | disposition home or self-care (01) | DRG 853 ==
LOC: SURG A 16:45 → CCU 03-03 22:58 → SJJU 03-06 18:09
PROVIDERS: ADMIT Family Medicine; ATTEND Internal Medicine
PROC: 3E03329 Introduction of Other Anti-infective into Peripheral Vein, Percutaneous Approach (ICD-10-PCS; 2023-03-01)
PROC: 0DTN0ZZ Resection of Sigmoid Colon, Open Approach (ICD-10-PCS; principal; 2023-03-03)
PROC: 0D1M0Z4 Bypass Descending Colon to Cutaneous, Open Approach (ICD-10-PCS; 2023-03-03)
PROC: 4A033R1 Measurement of Arterial Saturation, Peripheral, Percutaneous Approach (ICD-10-PCS; 2023-03-03)
DX: A41.51 Sepsis due to Escherichia coli [E. coli] (principal); K65.1 Peritoneal abscess; K65.8 Other peritonitis; K57.20 Diverticulitis of large intestine with perforation and abscess without bleeding; K56.7 Ileus, unspecified; N17.9 Acute kidney failure, unspecified; E87.20 Acidosis, unspecified; K56.609 Unspecified intestinal obstruction, unspecified as to partial versus complete obstruction; A41.59 Other Gram-negative sepsis; K59.09 Other constipation; I12.9 Hypertensive chronic kidney disease with stage 1 through stage 4 chronic kidney disease, or unspecified chronic kidney disease; N18.30 Chronic kidney disease, stage 3 unspecified; D63.1 Anemia in chronic kidney disease; K52.9 Noninfective gastroenteritis and colitis, unspecified; I48.0 Paroxysmal atrial fibrillation; E87.6 Hypokalemia; E83.39 Other disorders of phosphorus metabolism; Z90.710 Acquired absence of both cervix and uterus
CPT/HCPCS: 36415; 36416; 36600; 71045; 74018; 74019; 74177; 76770; 80048; 80053; 82533; 82805; 83605; 83735; 83880; 84100; 84484; 85025; 85027; 85060; 85379; 85610; 85730; 86850; 86900; 86901; 87070; 87077; 87186; 87205; 88307; 93005; 93010; 93306; 94002; 94003; 94640; 97139; C1713; C9113; J0282; J0360; J1160; J1200; J1650; J1815; J1885; J1940; J2185; J2270; J2370; J2405; J2543; J2550; J2704; J2765; J2920; J3010; J3475; J3480; J3490; J7050; J7070; J7120; J7620; P9045; Q9967

== ENCOUNTER 2023-07-11 09:32 | Outpatient (CLI) | payer MEDICARE, BC ==
[2023-07-11 11:08] LABS: #Basophils 0.1 10x3/uL (0.0-0.2); #Eosinphils 0.1 10x3/uL (0.0-0.5); #Monocytes 0.4 10x3/uL (0.0-1.1); #Neutrophils 4.3 10x3/uL (1.5-8.4); %Basophils 0.8 % (0.0-2.0); %Eosinophils 1.3 % (0.0-6.0); %Lymphocytes 20.5 % (18.0-47.0); %Monocytes 6.8 % (0.0-10.0); %Neutrophils 70.4 % (40.0-75.0); Hematocrit 44.8 % (34.9-44.5); Hemoglobin 14.5 g/dL (12.0-15.5); Mean Corpuscular HGB CONC 32.4 g/dL (32.0-36.0); Mean Corpuscular Hemoglobin 28.8 pg (27.0-33.0); Mean Corpuscular Volume 89.1 fl (81.6-98.3); Platelet Count 266 10x3/uL (150-450); RBC Distribution Width 14.5 % (11.5-14.5); Red Blood Cell (RBC) Count 5.03 10x6/uL (3.90-5.03); White Blood Cell (WBC) Count 6.2 10x3/uL (3.5-10.5)
[2023-07-11 11:31] LABS: Anion Gap 14 mmol/L (10-20); BUN (Urea Nitrogen) 12 mg/dL (9.8-20.1); Calc. Creatinine Clearance 0 mL/min (70-130); Calcium 9.5 mg/dL (7.8-10.44); Carbon Dioxide 25 mmol/L (23-31); Chloride 104 mmol/L (98-107); Estimated GFR 69; Glucose 87 mg/dL (83-110); Potassium 4.3 mmol/L (3.5-5.1); Sodium 139 mmol/L (136-145)
== END 2023-07-11 09:33 | disposition home or self-care (01) ==
LOC: LABBT 09:32
PROVIDERS: ATTEND Surgery
DX: Z01.818 Encounter for other preprocedural examination (principal); K94.03 Colostomy malfunction; K57.92 Diverticulitis of intestine, part unspecified, without perforation or abscess without bleeding
CPT/HCPCS: 80048; 85025; 93005; 93010

== ENCOUNTER 2023-07-11 10:00 | Inpatient (IN) | payer MEDICARE, BC ==
[2023-07-11 10:26] VITALS: BMI 22.8
[2023-07-16] MEDS ORDERED: Midazolam HCl 2 mg/2 ml Vial ONE (07:49)
[2023-07-16] MEDS ORDERED: EPINEPHrine 1 MG/ML VIAL ONE (07:49)
[2023-07-16] MEDS ORDERED: fentaNYL PF 100 MCG/2 ML SYRINGE ONE ×4 (07:50→13:17)
[2023-07-16] MEDS ORDERED: Bupivacaine 0.25% HCL 30 ML VIAL ONE (07:50)
[2023-07-16] MEDS ORDERED: Sodium Chloride 0.9% 100 ML ONE (08:14)
[2023-07-16] MEDS ORDERED: cefOXitin 2 GM VIAL ONE (08:14)
[2023-07-16] MEDS ORDERED: SUGAMMADEX SODIUM 200 MG/2 ML VIAL ONE (10:26)
[2023-07-16] MEDS ORDERED: Lidocaine 1% PF 5 ML VIAL ONE (10:34)
[2023-07-16] MEDS ORDERED: Ondansetron PF 4 MG/2 ML Vial ONE (10:34)
[2023-07-16] MEDS ORDERED: Dexamethasone 20 MG/5 ML VIAL ONE (10:34)
[2023-07-16] MEDS ORDERED: NEOSTIGMINE 3 MG/3 ML SYR 3 MG/3 ML SYRINGE ONE (10:34)
[2023-07-16] MEDS ORDERED: Glycopyrrolate 0.2 MG/ML 5 ML SYRINGE ONE (10:34)
[2023-07-16] MEDS ORDERED: Rocuronium Bromide 10 MG/ML (10ML VIAL) ONE (10:34)
[2023-07-16] MEDS ORDERED: PROPOFOL 200 MG/20 ML VIAL ONE (10:34)
[2023-07-16] MEDS ORDERED: Promethazine HCl 25 MG/ML VIAL IM PRN ×2 (12:48→13:45)
[2023-07-16] MEDS ORDERED: Ipratropium/Albuterol 3 ML NEB NEB PRN (12:48)
[2023-07-16] MEDS ORDERED: ALPRAZolam 0.25 MG TAB PO PRN (12:48)
[2023-07-16] MEDS ORDERED: hydrALAZINE 20 MG/ML VIAL SLOW IVP PRN (12:48)
[2023-07-16] MEDS ORDERED: Ondansetron PF 4 MG/2 ML Vial IVP PRN (12:48)
[2023-07-16] MEDS ORDERED: D5 1/2 NS w/20 mEq KCL 1,000 ML ONE (13:36)
[2023-07-16] MEDS: D5 1/2 NS w/20 mEq KCL 1,000 ML IV SCH (13:39)
[2023-07-16] MEDS ORDERED: diphenhydrAMINE 50 MG/ML VIAL IM/IV PRN (13:45)
[2023-07-16] MEDS ORDERED: Naloxone HCl 0.4 mg/ml Vial IV PRN (13:45)
[2023-07-16] MEDS ORDERED: diphenhydrAMINE 25 MG CAP PO PRN (13:45)
[2023-07-16] MEDS ORDERED: Fentanyl CADD 100 ML IVPB SCH (13:45)
[2023-07-16] MEDS ORDERED: cefOXitin Sodium 1 GM in Sodium Chloride 0.9% 100 ML IVPB SCH (16:00)
[2023-07-16] MEDS: cefOXitin Sodium 1 GM in Sodium Chloride 0.9% 100 ML IVPB SCH (18:33)
[2023-07-16] MEDS: Nebivolol HCl 5 MG TAB PO SCH (20:51)
[2023-07-16] MEDS: Famotidine/PF 20 mg/2ml Vial SLOW IVP SCH (20:51)
[2023-07-16] MEDS: QUEtiapine 25 MG TAB PO SCH (20:52)
[2023-07-16] MEDS: Famotidine 20 MG TAB PO SCH (20:53)
[2023-07-16] MEDS: Zolpidem Tartrate 5 MG TAB PO PRN (22:30)
[2023-07-17] MEDS: cefOXitin Sodium 1 GM in Sodium Chloride 0.9% 100 ML IVPB SCH (02:33)
[2023-07-17] MEDS: D5 1/2 NS w/20 mEq KCL 1,000 ML IV SCH ×4 (02:34→22:47)
[2023-07-17 07:02] LABS: #Monocytes 1.1 thou/uL (0.11-0.59); #Neutrophils 11.6 thou/uL (1.40-6.50); %Basophils 0.1 % (0.0-1.0); %Lymphocytes 7.9 % (21.0-51.0); %Monocytes 8.1 % (0.0-10.0); %Neutrophils 83.6 % (42.0-75.0); Hematocrit 37.7 % (36.0-47.0); Hemoglobin 12.5 g/dL (12.0-16.0); Mean Corpuscular HGB CONC 33.2 g/dL (32.0-36.0); Mean Corpuscular Hemoglobin 29.4 pg (27.0-31.0); Mean Corpuscular Volume 88.7 fl (78.0-98.0); Mean Platelet Volume 10.7 fL (7.4-10.4); Platelet Count 212 10x3/uL (130-400); RBC Distribution Width 13.9 % (11.5-14.5); Red Blood Cell (RBC) Count 4.25 mill/uL (4.20-5.40); White Blood Cell (WBC) Count 13.9 10x3/uL (4.8-10.8)
[2023-07-17] MEDS: Lisinopril 5 MG TAB PO SCH (08:31)
[2023-07-17] MEDS: Famotidine 20 MG TAB PO SCH ×2 (08:31→19:46)
[2023-07-17] MEDS: Famotidine/PF 20 mg/2ml Vial SLOW IVP SCH ×2 (08:32→19:46)
[2023-07-17 08:45] LABS: Chloride 105 mmol/L (98-107)
[2023-07-17 08:46] LABS: Calcium 8.6 mg/dL (7.8-10.44); Glucose 122 mg/dL (83-110); Potassium 4.4 mmol/L (3.5-5.1); Sodium 135 mmol/L (136-145)
[2023-07-17 08:48] LABS: Anion Gap 13 mmol/L (10-20); Carbon Dioxide 21 mmol/L (23-31)
[2023-07-17 08:50] LABS: Calc. Creatinine Clearance 57 mL/min (70-130); Estimated GFR 73
[2023-07-17 08:51] LABS: BUN (Urea Nitrogen) 9 mg/dL (9.8-20.1)
[2023-07-17] MEDS ORDERED: traMADol HCl 50 MG TAB PO PRN ×2 (11:56)
[2023-07-17] MEDS ORDERED: oxyCODONE 5 MG TAB PO PRN ×2 (11:57→11:58)
[2023-07-17] MEDS ORDERED: fentaNYL 50 mcg/mL 1 mL Vial SLOW IVP PRN (11:59)
[2023-07-17] MEDS: Acetaminophen 325 MG TAB PO SCH ×2 (12:39→17:23)
[2023-07-17] MEDS: Ondansetron PF 4 MG/2 ML Vial IVP PRN ×2 (13:50→21:24)
[2023-07-17] MEDS: Nebivolol HCl 5 MG TAB PO SCH (19:45)
[2023-07-17] MEDS ORDERED: Calcium Carbonate 500 MG ChewTAB PO PRN (21:25)
[2023-07-17] MEDS: Zolpidem Tartrate 5 MG TAB PO PRN (22:05)
[2023-07-17] MEDS: QUEtiapine 25 MG TAB PO SCH (22:07)
[2023-07-18] MEDS: Acetaminophen 325 MG TAB PO SCH ×5 (01:06→23:15)
[2023-07-18] MEDS: Famotidine 20 MG TAB PO SCH ×2 (08:42→21:04)
[2023-07-18] MEDS: D5 1/2 NS w/20 mEq KCL 1,000 ML IV SCH (08:42)
[2023-07-18] MEDS: Lisinopril 5 MG TAB PO SCH (08:43)
[2023-07-18] MEDS: Famotidine/PF 20 mg/2ml Vial SLOW IVP SCH ×2 (08:45→21:05)
[2023-07-18 11:59] LABS: #Eosinphils 0.1 thou/uL (0.0-0.7); #Monocytes 0.9 thou/uL (0.11-0.59); #Neutrophils 8.3 thou/uL (1.40-6.50); %Basophils 0.3 % (0.0-1.0); %Lymphocytes 13.7 % (21.0-51.0); %Monocytes 8.6 % (0.0-10.0); %Neutrophils 76.1 % (42.0-75.0); Hemoglobin 11.6 g/dL (12.0-16.0); Mean Corpuscular HGB CONC 33.1 g/dL (32.0-36.0); Mean Corpuscular Volume 90.4 fl (78.0-98.0); Mean Platelet Volume 10.4 fL (7.4-10.4); Platelet Count 207 10x3/uL (130-400); RBC Distribution Width 13.9 % (11.5-14.5); Red Blood Cell (RBC) Count 3.87 mill/uL (4.20-5.40); White Blood Cell (WBC) Count 10.9 10x3/uL (4.8-10.8)
[2023-07-18] MEDS: Nebivolol HCl 5 MG TAB PO SCH (21:04)
[2023-07-18] MEDS: QUEtiapine 25 MG TAB PO SCH (22:06)
[2023-07-18] MEDS: Zolpidem Tartrate 5 MG TAB PO PRN (22:06)
[2023-07-19] MEDS: Acetaminophen 325 MG TAB PO SCH ×2 (05:14→13:56)
[2023-07-19] MEDS: Famotidine/PF 20 mg/2ml Vial SLOW IVP SCH (07:22)
[2023-07-19 08:04] VITALS: TEMP 98.1
[2023-07-19] MEDS: Lisinopril 5 MG TAB PO SCH (08:43)
[2023-07-19] MEDS: Famotidine 20 MG TAB PO SCH (08:43)
[2023-07-19 13:06] VITALS: BP 131/68
== END 2023-07-19 14:34 | disposition home or self-care (01) | DRG 331 ==
LOC: SURG A 07-16 06:44
PROVIDERS: ADMIT Surgery; ATTEND Surgery
PROC: 0DBN0ZZ Excision of Sigmoid Colon, Open Approach (ICD-10-PCS; principal; 2023-07-17)
DX: Z43.3 Encounter for attention to colostomy (principal); Z88.8 Allergy status to other drugs, medicaments and biological substances; Z79.899 Other long term (current) drug therapy
CPT/HCPCS: 36415; 36416; 80048; 85025; 88304; A4314; C1713; J0171; J0694; J1100; J1200; J1650; J2250; J2405; J2704; J3480; J3490; S0020; S0028

== ENCOUNTER 2023-08-17 18:42 | Emergency (ER) | payer MEDICARE, BC ==
[~2023-08-17 18:42] MED LIST: Iopamidol-370 76% 500 ML MDV (1 ML CHARGE) ONE
[2023-08-17] MEDS ORDERED: Morphine 4 MG/ML VIAL ONE (19:05)
[2023-08-17] MEDS ORDERED: Ondansetron PF 4 MG/2 ML Vial ONE (19:05)
[2023-08-17 19:08] LABS: #Monocytes 0.7 thou/uL (0.11-0.59); #Neutrophils 6.8 thou/uL (1.40-6.50); %Basophils 0.3 % (0.0-1.0); %Eosinophils 0.3 % (0.0-10.0); %Lymphocytes 20.5 % (21.0-51.0); %Monocytes 7.3 % (0.0-10.0); %Neutrophils 71.3 % (42.0-75.0); Hematocrit 42.9 % (36.0-47.0); Hemoglobin 14.8 g/dL (12.0-16.0); Mean Corpuscular HGB CONC 34.5 g/dL (32.0-36.0); Mean Corpuscular Hemoglobin 30.1 pg (27.0-31.0); Mean Corpuscular Volume 87.4 fl (78.0-98.0); Mean Platelet Volume 10.6 fL (7.4-10.4); Platelet Count 222 10x3/uL (130-400); Red Blood Cell (RBC) Count 4.91 mill/uL (4.20-5.40); White Blood Cell (WBC) Count 9.5 10x3/uL (4.8-10.8)
[2023-08-17 19:30] LABS: ALT (SGPT) 14 U/L (8-55); AST (SGOT) 14 U/L (5-34); Albumin 4.3 g/dL (3.4-4.8); Alkaline Phosphatase 57 U/L (40-110); Anion Gap 13 mmol/L (10-20); BUN (Urea Nitrogen) 8 mg/dL (9.8-20.1); Bilirubin, Total 0.8 mg/dL (0.2-1.2); Calc. Creatinine Clearance 0 mL/min (70-130); Calcium 9.9 mg/dL (7.8-10.44); Carbon Dioxide 27 mmol/L (23-31); Chloride 97 mmol/L (98-107); Estimated GFR 63; Globulin 3.1 g/dL (2.4-3.5); Glucose 104 mg/dL (83-110); Lipase 11 U/L (8-78); Potassium 3.8 mmol/L (3.5-5.1); Protein, Total 7.4 g/dL (5.8-8.1); Sodium 133 mmol/L (136-145)
[2023-08-17 19:40] LABS: Troponin I Less than 0.010 ng/mL (< 0.028)
[2023-08-17 19:56] LABS: Bacteria/HPF None Seen HPF (None Seen); Bilirubin Negative (Negative); Blood, Urine 1+ (Negative); CAUTI Indications for Culture Pelvic or flank pain; Clarity Clear (Clear); Glucose, Urine (Dipstick) Normal (Negative); Ketone, Urine Negative (Negative); Leukocyte 25 Leu/uL (Negative); Mucous/LPF Rare LPF (<2+); Nitrite Negative (Negative); Protein, Urine (Dipstick) Negative (Neg-Trace); Specific Gravity, Urine 1.008 (1.002-1.036); Squamous Epithelial 0-3 HPF (0-3); Urobilinogen Normal mg/dL (Less than 2); pH, Urine 6.5 (5.0-9.0)
[2023-08-17 19:59] LABS: Urine Culture Reflex No No
== END 2023-08-17 22:27 | disposition home or self-care (01) ==
LOC: ERS 18:42
DX: R10.9 Unspecified abdominal pain (principal)
CPT/HCPCS: 71045; 74177; 80053; 81001; 83690; 84484; 85025; 93005; 96374; 96375; J2270; J2405; Q9967

== ENCOUNTER 2025-03-10 21:14 | Emergency (ER) | payer MEDICARE, BC ==
[2025-03-10] MEDS ORDERED: Ketorolac Tromethamine 30 MG (1 mL) VIAL ONE (21:51)
[2025-03-10] MEDS ORDERED: LORazepam 2 MG/ML SYR.(CARPUJECT) ONE (21:51)
[2025-03-10] MEDS ORDERED: KETAMINE 100 MG/ML (5ML VIAL) ONE (22:50)
[2025-03-10] MEDS ORDERED: Ondansetron PF 4 MG/2 ML Vial ONE (22:50)
[2025-03-10] MEDS ORDERED: Ketamine In 0.9 % NaCl 50 MG/5 ML SYRINGE ONE (23:15)
== END 2025-03-11 00:53 | disposition home or self-care (01) ==
LOC: ERS 21:14
DX: S43.014A Anterior dislocation of right humerus, initial encounter (principal); S43.034A Inferior dislocation of right humerus, initial encounter; I10 Essential (primary) hypertension; Z79.899 Other long term (current) drug therapy; W13.8XXA Fall from, out of or through other building or structure, initial encounter; Y93.89 Activity, other specified; I48.0 Paroxysmal atrial fibrillation
CPT/HCPCS: 23650; 73030 ×2; 80053; 80061; 85025; 96374; 96375; 99152; 99283; J1885; J2060; J2270; J2405; J3490; 36415

== ENCOUNTER 2025-06-10 10:53 | Outpatient (CLI) | payer MEDICARE, BC | END 2025-06-10 10:54 | disposition home or self-care (01) | LOC: SCSMRI 10:53 | PROVIDERS: ATTEND Orthopaedic Surgery | DX: M67.431 Ganglion, right wrist (principal); M25.431 Effusion, right wrist ==

== ENCOUNTER 2025-09-03 16:20 | Inpatient (IN) | payer MEDICARE, BC ==
[2025-09-03 16:34] LABS: #Basophils 0.03 10x3/uL (0.0-0.2); #Eosinophils 0.04 10x3/uL (0.0-0.7); #Monocytes 0.61 10x3/uL (0.11-0.59); #Neutrophils 7.05 10x3/uL (1.40-6.50); %Basophils 0.3 % (0.0-1.0); %Eosinophils 0.4 % (0.0-10.0); %Lymphocytes 17.0 % (21.0-51.0); %Monocytes 6.5 % (0.0-10.0); %Neutrophils 75.5 % (42.0-75.0); Hematocrit 42.2 % (36.0-47.0); Hemoglobin 14.1 g/dL (12.0-16.0); Mean Corpuscular Hemoglobin 29.3 pg (27.0-31.0); Mean Corpuscular Volume 87.7 fL (78.0-98.0); Platelet Count 265 10x3/uL (130-400); Red Blood Cell (RBC) Count 4.81 mill/uL (4.20-5.40); White Blood Cell (WBC) Count 9.35 10x3/uL (4.8-10.8)
[2025-09-03] MEDS ORDERED: niCARdipine 25 MG/10 ML SDV ONE ×3 (16:47→21:33)
[2025-09-03 16:53] LABS: INR-International Normal Ratio 0.9; PTT 24.0 sec (22.9-36.1); Prothrombin Time 12.6 sec (12.0-14.7)
[2025-09-03 16:58] LABS: ALT (SGPT) 12 U/L (Less than 34); AST (SGOT) 20 U/L (11-34); Albumin 3.7 g/dL (3.1-4.5); Alkaline Phosphatase 56 U/L (40-110); Anion Gap 13 mmol/L (10-20); BUN (Urea Nitrogen) 16 mg/dL (9.8-20.1); Bilirubin, Total 0.3 mg/dL (0.3-1.2); CK (CPK) 86 U/L (29-168); Calc. Creatinine Clearance 0 mL/min (70-130); Calcium 9.9 mg/dL (7.8-10.44); Carbon Dioxide 22 mmol/L (23-31); Chloride 108 mmol/L (98-107); Globulin 2.9 g/dL (2.4-3.5); Glucose 121 mg/dL (83-110); Lipase 22 U/L (8-78); Potassium 4.2 mmol/L (3.5-5.1); Sodium 139 mmol/L (136-145)
[2025-09-03] MEDS ORDERED: Ondansetron PF 4 MG/2 ML Vial IVP PRN (17:35)
[2025-09-03] MEDS ORDERED: Senokot S 8.6-50 MG TAB PO PRN (17:35)
[2025-09-03] MEDS ORDERED: Guaifenesin DM 100-10/5 ML UDCUP PO PRN (17:35)
[2025-09-03] MEDS: niCARdipine 25 MG in Sodium Chloride 0.9% 250 ML 250 ML IVPB SCH (19:25)
[2025-09-03] MEDS ORDERED: Acetaminophen 325 MG TAB ONE (20:57)
[2025-09-03] MEDS: Acetaminophen 325 MG TAB PO SCH (22:00)
[2025-09-04 01:27] LABS: Bacteria/HPF None Seen HPF (None Seen); CAUTI Indications for Culture Alt mental st,lethar; Glucose, Urine (Dipstick) Normal (Negative); Leukocyte 500 Leu/uL (Negative); Protein, Urine (Dipstick) Negative (Neg-Trace); RBC/HPF None Seen HPF (0-3); Specific Gravity, Urine 1.016 (1.002-1.036); WBC/HPF None Seen HPF (0-3)
[2025-09-04 01:40] LABS: Urine Culture Reflex No No
[2025-09-04 04:44] VITALS: BMI 22.6
[2025-09-04 05:03] LABS: #Basophils 0.04 10x3/uL (0.0-0.2); #Eosinophils 0.07 10x3/uL (0.0-0.7); #Monocytes 0.72 10x3/uL (0.11-0.59); #Neutrophils 6.86 10x3/uL (1.40-6.50); %Basophils 0.4 % (0.0-1.0); %Eosinophils 0.7 % (0.0-10.0); %Lymphocytes 20.2 % (21.0-51.0); %Monocytes 7.5 % (0.0-10.0); %Neutrophils 71.0 % (42.0-75.0); Hematocrit 42.6 % (36.0-47.0); Hemoglobin 13.9 g/dL (12.0-16.0); Mean Corpuscular Hemoglobin 29.2 pg (27.0-31.0); Mean Corpuscular Volume 89.5 fL (78.0-98.0); Platelet Count 279 10x3/uL (130-400); Red Blood Cell (RBC) Count 4.76 mill/uL (4.20-5.40); White Blood Cell (WBC) Count 9.66 10x3/uL (4.8-10.8)
[2025-09-04 05:20] LABS: Anion Gap 14 mmol/L (10-20); BUN (Urea Nitrogen) 10 mg/dL (9.8-20.1); Calc. Creatinine Clearance 69 mL/min (70-130); Calcium 9.0 mg/dL (7.8-10.44); Carbon Dioxide 20 mmol/L (23-31); Chloride 112 mmol/L (98-107); Glucose 108 mg/dL (83-110); Potassium 3.8 mmol/L (3.5-5.1); Sodium 142 mmol/L (136-145)
[2025-09-04] MEDS: Lisinopril 5 MG TAB PO SCH (07:48)
[2025-09-04] MEDS ORDERED: Lidocaine 1% PF 5 ML VIAL ONE (10:02)
[2025-09-04] MEDS ORDERED: Rocuronium Bromide 10 MG/ML (10ML VIAL) ONE (10:02)
[2025-09-04] MEDS ORDERED: PROPOFOL 20 ML ONE (10:02)
[2025-09-04] MEDS ORDERED: Acetaminophen/Codeine 30-300mg Tablet PO PRN (10:12)
[2025-09-04] MEDS ORDERED: CEFAZOLIN 1 GM VIAL ONE (10:39)
[2025-09-04] MEDS ORDERED: SUGAMMADEX SODIUM 200 MG/2 ML VIAL ONE (11:17)
[2025-09-04] MEDS ORDERED: ALPRAZolam 0.25 MG TAB PO PRN (13:29)
[2025-09-04] MEDS: hydrALAZINE 20 MG/ML VIAL SLOW IVP PRN (13:45)
[2025-09-04] MEDS ORDERED: CEFAZOLIN 1 GM VIAL SLOW IVP SCH (14:00)
[2025-09-04] MEDS: ALPRAZolam 0.5 MG TAB PO PRN (17:54)
[2025-09-06 04:05] LABS: #Basophils Less than 0.03 10x3/uL (0.0-0.2); #Eosinophils 0.04 10x3/uL (0.0-0.7); #Monocytes 0.92 10x3/uL (0.11-0.59); #Neutrophils 9.12 10x3/uL (1.40-6.50); %Basophils 0.1 % (0.0-1.0); %Eosinophils 0.3 % (0.0-10.0); %Lymphocytes 20.3 % (21.0-51.0); %Monocytes 7.2 % (0.0-10.0); %Neutrophils 71.7 % (42.0-75.0); Hematocrit 37.7 % (36.0-47.0); Hemoglobin 12.4 g/dL (12.0-16.0); Mean Corpuscular Hemoglobin 29.7 pg (27.0-31.0); Mean Corpuscular Volume 90.4 fL (78.0-98.0); Platelet Count 257 10x3/uL (130-400); Red Blood Cell (RBC) Count 4.17 mill/uL (4.20-5.40); White Blood Cell (WBC) Count 12.73 10x3/uL (4.8-10.8)
[2025-09-06 04:26] LABS: Anion Gap 10 mmol/L (10-20); BUN (Urea Nitrogen) 20 mg/dL (9.8-20.1); Calc. Creatinine Clearance 64 mL/min (70-130); Calcium 8.8 mg/dL (7.8-10.44); Carbon Dioxide 24 mmol/L (23-31); Chloride 110 mmol/L (98-107); Glucose 98 mg/dL (83-110); Potassium 4.0 mmol/L (3.5-5.1); Sodium 140 mmol/L (136-145)
[2025-09-06 07:46] VITALS: TEMP 97.5
[2025-09-06 10:57] VITALS: BP 141/69
[2025-09-06 11:35] LABS: Free T4 (Free Thyroxine) 1.43 ng/dL (0.70-1.48)
== END 2025-09-06 11:50 | disposition home or self-care (01) | DRG 25 ==
LOC: ERS 16:20 → ERHOLD 17:35 → CCU 21:59
PROVIDERS: ADMIT Hospitalist; ATTEND Family Medicine
PROC: 00C00ZZ Extirpation of Matter from Brain, Open Approach (ICD-10-PCS; principal; 2025-09-04)
PROC: 3E03329 Introduction of Other Anti-infective into Peripheral Vein, Percutaneous Approach (ICD-10-PCS; 2025-09-05)
DX: I62.03 Nontraumatic chronic subdural hemorrhage (principal); G93.41 Metabolic encephalopathy; I48.20 Chronic atrial fibrillation, unspecified; I10 Essential (primary) hypertension; Z88.1 Allergy status to other antibiotic agents; Z98.890 Other specified postprocedural states; Z93.3 Colostomy status; Z98.891 History of uterine scar from previous surgery; Z90.49 Acquired absence of other specified parts of digestive tract; Z79.899 Other long term (current) drug therapy
CPT/HCPCS: 36415; 36416; 70450; 70496; 70498; 71045; 80048; 80053; 81001; 82140; 82550; 83605; 83690; 84439; 84443; 84481; 84484; 85025; 85610; 85730; 93005; 94760; 96365; 96366; C1713; J0360; J0690; J1100; J2272; J2704; J3010; J7050; Q9967